=== PATIENT | male | born 2000 ===

== ENCOUNTER 2022-10-08 15:31 | Outpatient (REF) | payer OTHER, SELFPAY ==
[2022-10-11 11:10] LABS: COVID-19 RT-PCR UVMMC Result Negative (Negative)
== END 2022-10-08 15:32 | disposition home or self-care (01) ==
LOC: LBN 15:31
PROVIDERS: Visit Provider Nurse Practitioner Family
DX: J02.9 Acute pharyngitis, unspecified (principal); R05.8 Other specified cough; Z20.822 Contact with and (suspected) exposure to COVID-19
CPT/HCPCS: U0003; 87070

== ENCOUNTER 2022-10-12 11:37 | Outpatient (REF) | payer OTHER, SELFPAY | END 2022-10-12 11:38 | disposition home or self-care (01) | LOC: LBN 11:37 | PROVIDERS: Visit Provider Nurse Practitioner Family | DX: J02.9 Acute pharyngitis, unspecified (principal) | CPT/HCPCS: 87070 ==